=== PATIENT | female | born 1965 | race Caucasian/White ===

== ENCOUNTER 2019-11-13 17:43 | Emergency (ER) | payer MEDICARE, MEDICAID ==
--- NOTE | 2019-11-13 18:28 | EDM.PDOC ---
<Patience Wood - Last Filed: 11/13/19 18:42> ED HPI GENERAL MEDICAL PROBLEM - General Chief Complaint: Neuro Symptoms/Deficits Stated Complaint: MIGRAIN HURTS...SINCE MONDAY. Time Seen by Provider: 11/13/19 18:28 Source of Information: Reports: Patient, RN, RN Notes Reviewed History Limitations: Reports: No Limitations - History of Present Illness INITIAL COMMENTS - FREE TEXT/NARRATIVE: Patient presents to ER with complaint of right-sided headache since Monday. Patient denies any visual disturbances although states sometimes when she is reading quickly she gets somewhat dizzy. Patient states her blood pressure has been somewhat elevated at home fluctuating 150s to 170s systolically and anywhere from 80-1 20 diastolically. Patient states she was to the clinic to see Dr. Stephens a day and wanted her lisinopril increased. Lisinopril was not increased and patient was scheduled for a head CT on Monday, the end of this week. Patient states today her upper lip had an awkward sensation, and her fingers of the right hand "dropped". She has equal strength in the hands bilaterally no deficits noted at this time. Patient states she was concerned because she did have a stroke 4 years ago, followed by open heart surgery. Onset: Gradual Onset Date: 11/08/19 - Related Data Allergies Allergy/AdvReac Type Severity Reaction Status Date / Time No Known Allergies Allergy Verified 05/09/16 16:49 Home Meds: Home Meds Aspirin 81 mg PO DAILY 05/09/16 [History] Leflunomide [Arava] 20 mg PO DAILY 05/09/16 [History] Lisinopril 10 mg PO DAILY 05/09/16 [History] atorvaSTATin [Lipitor] 40 mg PO DAILY 05/09/16 [History] Clopidogrel Bisulfate [Clopidogrel] 75 mg PO DAILY 11/13/19 [History] Past Medical History Cardiovascular History: Reports: Hypertension, Other (See Below) Respiratory History: Reports: Asthma Musculoskeletal History: Reports: RA Neurological History: Reports: Other (See Below) Other Neuro History: stroke 4 years ago, ischemic Endocrine/Metabolic History: Reports: Other (See Below) Other Endocrine/Metabolic History: pre diabetes - Past Surgical History Cardiovascular Surgical History: Reports: Coronary Artery Bypass, Other (See Below) Social & Family History - Family History Family Medical History: Noncontributory - Tobacco Use Smoking Status *Q: Current Every Day Smoker Years of Tobacco use: 40 Packs/Tins Daily: 1 - Caffeine Use Caffeine Use: Reports: Coffee - Recreational Drug Use Recreational Drug Use: No Drug Use in Last 12 Months: No ED ROS GENERAL - Review of Systems Review Of Systems: Comprehensive ROS is negative, except as noted in HPI. - Physical Exam Exam: See Below Exam Limited By: No Limitations General Appearance: Alert, WD/WN, No Apparent Distress Eye Exam: Bilateral Eye: EOMI, Normal Inspection, PERRL (3 brisk) Ears: Normal External Exam, Hearing Grossly Normal Nose: Normal Inspection Throat/Mouth: Normal Inspection, Normal Voice, No Airway Compromise Head Exam: Atraumatic, Normocephalic Neck: Normal Inspection, Supple, Non-Tender, Full Range of Motion Respiratory/Chest: No Respiratory Distress, Lungs Clear, Normal Breath Sounds, No Accessory Muscle Use, Chest Non-Tender Cardiovascular: Normal Peripheral Pulses, Regular Rate, Rhythm, No Edema, No Gallop, No JVD, No Murmur, No Rub GI/Abdominal: Normal Bowel Sounds, Soft, Non-Tender, No Organomegaly, No Distention, No Abnormal Bruit, No Mass (Female) Exam: Deferred Rectal (Female) Exam: Deferred Neuro Exam (Abbreviated): Alert, Oriented, CN II-XII Intact, Normal Cognition, Normal Gait, No Motor/Sensory Deficits Back Exam: Normal Inspection, Full Range of Motion, NT Extremities: Normal Inspection, Normal Range of Motion, Non-Tender, No Pedal Edema, Normal Capillary Refill Psychiatric: Normal Affect, Normal Mood, Anxious Skin Exam: Warm, Dry, Intact, Normal Color, No Rash Course - Vital Signs Last Recorded V/S: Last Vital Signs Temp 99.1 F 11/13/19 18:01 Pulse 100 11/13/19 18:01 Resp 12 11/13/19 18:01 BP 170/98 H 11/13/19 18:01 Pulse Ox 97 11/13/19 18:01 - Orders/Labs/Meds Orders: Active Orders 24 hr Category Date Time Status Head wo Cont [CT] Stat Exams 11/13/19 18:39 Ordered Labs: Laboratory Tests 11/13/19 11/13/19 Range/Units 18:50 18:50 WBC 12.2 H (5.0-10.0) 10^3/uL RBC 5.29 (4.2-5.4) 10^6/uL Hgb 16.1 H (12.0-16.0) g/dL Hct 49.0 H (37.0-47.0) % MCV 92.6 D (80-100) fL MCH 30.4 (27.0-34.0) pg MCHC 32.9 L (33.0-35.0) g/dL Plt Count 214 (150-450) 10^3/uL Neut % (Auto) 58.2 (42.2-75.2) % Lymph % (Auto) 28.6 (20.5-50.1) % Brooke % (Auto) 9.8 H (2-8) % Eos % (Auto) 3.2 H (1.0-3.0) % Baso % (Auto) 0.2 (0.0-1.0) % Sodium 141 (136-145) mmol/L Potassium 3.9 (3.5-5.1) mmol/L Chloride 103 (98-107) mmol/L Carbon Dioxide 29 (21-32) mmol/L Anion Gap 12.9 (7-13) mEq/L BUN 20 H (7-18) mg/dL Creatinine 0.83 (0.55-1.02) mg/dL Est Cr Clr Drug Dosing 65.35 mL/min Estimated GFR (MDRD) > 60 BUN/Creatinine Ratio 24.1 (No establ ref range) Glucose 111 H (74-99) mg/dL Calcium 9.2 (8.5-10.1) mg/dL Total Bilirubin 0.2 (0.2-1.0) mg/dL AST 16 (15-37) U/L ALT 27 (14-59) U/L Alkaline Phosphatase 106 (46-116) U/L Total Protein 7.5 (6.4-8.2) g/dL Albumin 3.7 (3.4-5.0) g/dL Globulin 3.8 Albumin/Globulin Ratio 1.0 Departure - Departure Disposition: Home, Self-Care 01 Clinical Impression: Hypertension - Discharge Information Instructions: Hypertension, Adult, [id number], Managing Your Hypertension Forms: ED Department Discharge Additional Instructions: Follow up with primary care Take medications as directed Sepsis Event Note - Evaluation Sepsis Screening Result: No Definite Risk - Focused Exam Vital Signs: Vital Signs Temp Pulse Resp BP Pulse Ox 11/13/19 18:01 99.1 F 100 12 170/98 H 97 Date Exam was Performed: 11/13/19 Time Exam was Performed: 18:42 <Maryjane Anthony - Last Filed: 11/13/19 19:57> Course - Radiology Interpretation Free Text/Narrative:: [facility] [place] [facility] Final Radiology Report Call: [phone] assistance Online chat: [email or web address] Name: ERINN WEINBERG Age: 54Years F Date: 11/13/2019 SSN: -- : [id number] Study: CT HEAD WO Requesting Physician: Patience Wood Images: 138 Addl Studies: Provided Clinical History: Contrast: Without Contrast Medium: Contrast Amount: Contrast Method: Page 1 of 2 PROCEDURE INFORMATION: Exam: CT Head Without Contrast Exam date and time: 11/13/2019 7:06 PM Age: 54 years old Clinical indication: Right sided headache, HTN TECHNIQUE: Imaging protocol: Computed tomography of the head without contrast. Coronal and sagittal reformatted images are submitted. Radiation optimization: All CT scans at this facility use at least one of these dose optimization techniques: automated exposure control; mA and/or kV adjustment per patient size (includes targeted exams where dose is matched to clinical indication); or iterative reconstruction. COMPARISON: CT Head wo Cont 02/13/2017 FINDINGS: Subtle millimetric hypodensities within the left periventricular and cerebral subcortical white matter are unchanged, consistent with minimal chronic small vessel ischemic disease. No other abnormal foci of altered attenuation within the remaining cerebral or cerebellar parenchyma. No intracranial mass lesion or evidence for acute territorial ischemia. Again demonstrated is symmetric enlargement of the frontal sulci bilaterally, consistent with early cerebral cortical atrophy. The ventricles and remaining sulci are otherwise within normal limits for age, without midline shift or hydrocephalus. No abnormal extraaxial fluid or air collection; no intracranial hemorrhage. The visualized paranasal sinuses, orbits, mastoid air cells, skull, and scalp are unremarkable. IMPRESSION: --No acute intracranial pathology. ERINN WEINBERG | Final Radiology Report CONFIDENTIALITY STATEMENT This report is intended only for use by the referring physician, and only in accordance with law. If you received this in error, call [phone]. Page 2 of 2 --[place] Stroke Program Early CT Score (ASPECTS) = 10. --Chronic findings are described above. Thank you for allowing us to participate in the care of your patient. Dictated and Authenticated by: Fahad Villarreal MD 11/13/2019 7:30 PM Central Time ([place] & [place]) Departure - Departure Time of Disposition: 19:46 Condition: Good - Discharge Information *PRESCRIPTION DRUG MONITORING PROGRAM REVIEWED*: No *COPY OF PRESCRIPTION DRUG MONITORING REPORT IN PATIENT GIFTY: No Sepsis Event Note - Focused Exam Date Exam was Performed: 11/13/19 Time Exam was Performed: 19:46
[2019-11-13 19:14] LABS: ANION GAP 12.9 mEq/L (7-13); CHLORIDE,CL 103 mmol/L (98-107); SODIUM,NA 141 mmol/L (136-145)
[2019-11-13 20:00] VITALS: BP 139/79; PULSE 76
== END 2019-11-13 19:50 | disposition home or self-care (01) ==
LOC: DL.ED 17:43
DX: I10 Essential (primary) hypertension (principal); M06.9 Rheumatoid arthritis, unspecified; F17.210 Nicotine dependence, cigarettes, uncomplicated; Z79.82 Long term (current) use of aspirin; Z79.02 Long term (current) use of antithrombotics/antiplatelets; Z79.899 Other long term (current) drug therapy
CPT/HCPCS: 36415; 70450; 80053; 85025; 99284-25

== ENCOUNTER 2023-05-29 14:36 | Emergency (ER) | payer MEDICAID, MEDICARE ==
[2023-05-29 14:59] VITALS: BP 157/107; PULSE 104
[2023-05-29 15:11] LABS: BASOPHILS PERCENT AUTO 0.5 % (0.0-1.0); EOSINOPHILS PERCENT AUTO 2.3 % (1.0-3.0); HEMATOCRIT 48.7 % (37.0-47.0); HEMOGLOBIN 15.9 g/dL (12.0-16.0); LYMPHOCYTES PERCENT AUTO 23.7 % (20.5-50.1); MEAN CORPUSCULAR HGB CONC 32.6 g/dL (33.0-35.0); MEAN CORPUSCULAR VOLUME 91.9 fL (80-100); MONOCYTES PERCENT AUTO 12.6 % (2-8); NEUTROPHILS PERCENT AUTO 60.9 % (42.2-75.2); PLATELET COUNT,PLT 187 10^3/uL (150-450); WHITE BLOOD CELL COUNT,WBC 10.5 10^3/uL (5.0-10.0)
[2023-05-29 15:33] LABS: A/G RATIO 0.8; ALBUMIN 3.4 g/dL (3.4-5.0); ANION GAP 12.1 mEq/L (7-13); BILIRUBIN TOTAL 0.4 mg/dL (0.2-1.0); BUN/CREATININE RATIO 19.3 (No establ ref range); CALCIUM 9.4 mg/dL (8.5-10.1); CREATININE 0.88 mg/dL (0.55-1.02); EST CRCL DRUG DOSING (CG) 54.44 mL/min; POTASSIUM,K 4.1 mmol/L (3.5-5.1); PROTEIN TOTAL,TP 7.9 g/dL (6.4-8.2)
== END 2023-05-29 15:58 | disposition home or self-care (01) ==
LOC: DL.ED 14:36
DX: R03.0 Elevated blood-pressure reading, without diagnosis of hypertension (principal); R07.89 Other chest pain; E78.00 Pure hypercholesterolemia, unspecified; I10 Essential (primary) hypertension; F17.210 Nicotine dependence, cigarettes, uncomplicated; Z79.82 Long term (current) use of aspirin; Z79.899 Other long term (current) drug therapy
CPT/HCPCS: 36415; 71045; 80053; 84484; 85025; 93005; 93010; 99284; 99285